=== PATIENT | female | born 1935 | race Native Hawaiian/Other Pacific Islander ===

== ENCOUNTER 2016-04-23 09:10 | Outpatient (CLI) | payer OTHER ==
[~2016-04-23 09:10] MED LIST: ACET5TAB36 PO; AMLO10TA PO; AMOX500C85 PO; ASA LOW STR81 MG PO; BRIMONIDINE0.15 % OP; CIPRO500 MG PO; DIOVAN HC1 PO; ELIQUIS5 MG OR; FLUT0.05 NAS; LEVAQUIN500 MG OR; LEVO0.0529 PO; LEVOTHROID25 MCG OR; LIPITOR40 MG PO; LUMIGAN0.01 % OP; METO50TA27 PO; PACERONE200 MG OR; PREDNISONE5 M1 OR; SERT100T PO; SIMV40TA57 PO; TEMA15CA19 PO; TIZA4TAB5 PO; TRAM50TA PO; UNITHROID50 MCG PO; VYTORIN1 TA2 PO
[2016-04-23 10:10] LABS: PLATELET COUNT 224 K/uL (152-353)
[2016-04-23 10:18] LABS: POTASSIUM 4.1 mmol/L (3.6-5.2)
== END 2016-04-23 23:39 | disposition home or self-care (01) ==
LOC: LABW 09:10
PROVIDERS: Internal Medicine
DX: I10 Essential (primary) hypertension (principal); R82.99 Other abnormal findings in urine
CPT/HCPCS: 36415; 80053; 80061; 81000; 84439; 84443; 85027; 87088

== ENCOUNTER 2016-05-11 18:03 | Emergency (ER) | payer OTHER ==
[~2016-05-11] VITALS: Ht 152.4 cm; Wt 59.0 kg
[2016-05-11 20:16] LABS: POTASSIUM 3.9 mmol/L (3.6-5.2); SODIUM 129 mmol/L (136-145)
[2016-05-11 20:38] LABS: PLATELET COUNT 243 K/uL (152-353)
[2016-05-11 21:08] VITALS: BP 186/67; TEMP 98
== END 2016-05-11 21:08 | disposition home or self-care (01) ==
LOC: ED 18:03
PROVIDERS: Emergency Medicine
DX: I10 Essential (primary) hypertension (principal); N39.0 Urinary tract infection, site not specified; R82.71 Bacteriuria; I48.91 Unspecified atrial fibrillation
CPT/HCPCS: 36415; 80053; 81000; 82550; 84443; 84484; 85027; 85610; 85730; 99283

== ENCOUNTER 2016-09-11 08:48 | Outpatient (CLI) | payer OTHER ==
[2016-09-11 09:05] LABS: PLATELET COUNT 220 K/uL (152-353)
[2016-09-11 09:33] LABS: POTASSIUM 4.1 mmol/L (3.6-5.2)
== END 2016-09-11 19:39 | disposition home or self-care (01) ==
LOC: LABW 08:48
PROVIDERS: Internal Medicine
DX: I10 Essential (primary) hypertension (principal); E03.8 Other specified hypothyroidism
CPT/HCPCS: 36415; 80053; 80061; 81000; 84439; 84443; 85027

== ENCOUNTER 2016-10-28 10:26 | Outpatient (CLI) | payer OTHER | END 2016-10-28 19:06 | disposition home or self-care (01) | LOC: MAMMO 10:26 | DX: Z12.31 Encounter for screening mammogram for malignant neoplasm of breast (principal) | CPT/HCPCS: G0202-TC ==

== ENCOUNTER 2017-03-12 08:53 | Outpatient (CLI) | payer OTHER ==
[2017-03-12 10:05] LABS: PLATELET COUNT 228 K/uL (152-353)
[2017-03-12 13:16] LABS: POTASSIUM 4.1 mmol/L (3.6-5.2)
== END 2017-03-12 09:55 | disposition home or self-care (01) ==
LOC: LABW 08:53
PROVIDERS: Internal Medicine
DX: I10 Essential (primary) hypertension (principal); E03.8 Other specified hypothyroidism
CPT/HCPCS: 36415; 80053; 80061; 81000; 84439; 84443; 85027

== ENCOUNTER 2017-06-10 09:01 | Outpatient (CLI) | payer OTHER ==
[2017-06-10 09:40] LABS: POTASSIUM 3.7 mmol/L (3.6-5.2)
== END 2017-06-11 09:01 | disposition home or self-care (01) ==
LOC: LABW 09:01
PROVIDERS: Internal Medicine
DX: E78.00 Pure hypercholesterolemia, unspecified (principal)
CPT/HCPCS: 36415; 80053; 80061

== ENCOUNTER 2017-10-23 09:12 | Outpatient (CLI) | payer OTHER ==
[2017-10-23 10:00] LABS: POTASSIUM 3.9 mmol/L (3.6-5.2)
== END 2017-10-23 19:44 | disposition home or self-care (01) ==
LOC: LABW 09:12
PROVIDERS: Internal Medicine
DX: I10 Essential (primary) hypertension (principal); E03.8 Other specified hypothyroidism; E78.00 Pure hypercholesterolemia, unspecified
CPT/HCPCS: 36415; 80053; 80061; 84439; 84443

== ENCOUNTER 2017-11-17 10:33 | Outpatient (CLI) | payer OTHER | END 2017-11-17 21:59 | disposition home or self-care (01) | LOC: MAMMO 10:33 | DX: Z12.31 Encounter for screening mammogram for malignant neoplasm of breast (principal) ==

== ENCOUNTER 2017-12-25 08:57 | Outpatient (CLI) | payer OTHER | END 2017-12-25 19:04 | disposition home or self-care (01) | LOC: LABW 08:57 | PROVIDERS: Internal Medicine Cardiovascular Disease | DX: E78.5 Hyperlipidemia, unspecified (principal) | CPT/HCPCS: 36415; 80061 ==

== ENCOUNTER 2018-04-13 08:49 | Outpatient (CLI) | payer OTHER ==
[2018-04-13 09:18] LABS: PLATELET COUNT 236 K/uL (152-353)
[2018-04-13 09:33] LABS: POTASSIUM 3.5 mmol/L (3.6-5.2)
== END 2018-04-13 23:39 | disposition home or self-care (01) ==
LOC: LABW 08:49
PROVIDERS: Internal Medicine
DX: E03.9 Hypothyroidism, unspecified (principal); I10 Essential (primary) hypertension
CPT/HCPCS: 36415; 80053; 80061; 81000; 84439; 84443; 85027

== ENCOUNTER 2018-09-28 08:20 | Outpatient (CLI) | payer OTHER ==
[2018-09-28 08:50] LABS: PLATELET COUNT 247 K/uL (152-353)
== END 2018-09-28 19:08 | disposition home or self-care (01) ==
LOC: LABW 08:20
PROVIDERS: Internal Medicine
DX: I10 Essential (primary) hypertension (principal); E78.00 Pure hypercholesterolemia, unspecified; E03.9 Hypothyroidism, unspecified
CPT/HCPCS: 36415; 80053; 80061; 81000; 84439; 84443; 85027

== ENCOUNTER 2019-01-17 12:39 | Outpatient (CLI) | payer OTHER | END 2019-01-17 19:59 | disposition home or self-care (01) | LOC: MAMMO 12:39 | DX: Z12.31 Encounter for screening mammogram for malignant neoplasm of breast (principal) ==

== ENCOUNTER 2019-04-11 08:25 | Outpatient (CLI) | payer OTHER ==
[2019-04-11 09:03] LABS: POTASSIUM 3.7 mmol/L (3.6-5.2)
[2019-04-11 09:48] LABS: PLATELET COUNT 263 K/uL (152-353)
== END 2019-04-11 19:12 | disposition home or self-care (01) ==
LOC: LABW 08:25
PROVIDERS: Internal Medicine
DX: I10 Essential (primary) hypertension (principal); E78.00 Pure hypercholesterolemia, unspecified; E03.8 Other specified hypothyroidism
CPT/HCPCS: 36415; 80053; 80061; 81000; 84439; 84443; 85027

== ENCOUNTER 2019-09-05 11:53 | Outpatient (CLI) | payer OTHER ==
[2019-09-05 12:30] LABS: PLATELET COUNT 251 K/uL (152-353)
[2019-09-05 13:02] LABS: POTASSIUM 3.8 mmol/L (3.6-5.2)
== END 2019-09-05 23:12 | disposition home or self-care (01) ==
LOC: LAB 11:53
PROVIDERS: Internal Medicine
DX: I10 Essential (primary) hypertension (principal); E78.00 Pure hypercholesterolemia, unspecified; E03.8 Other specified hypothyroidism; R82.998 Other abnormal findings in urine
CPT/HCPCS: 80053; 80061; 81000; 84439; 84443; 85027; 87088

== ENCOUNTER 2020-01-30 09:11 | Outpatient (CLI) | payer OTHER ==
[2020-01-30 09:51] LABS: PLATELET COUNT 274 K/uL (152-353)
[2020-01-30 09:58] LABS: POTASSIUM 4.1 mmol/L (3.6-5.2)
== END 2020-01-30 23:23 | disposition home or self-care (01) ==
LOC: LABW 09:11
PROVIDERS: Internal Medicine Cardiovascular Disease
DX: Z79.899 Other long term (current) drug therapy (principal)
CPT/HCPCS: 36415; 80053; 80061; 85027

== ENCOUNTER 2020-08-08 08:41 | Outpatient (CLI) | payer OTHER ==
[2020-08-08 09:32] LABS: PLATELET COUNT 242 K/uL (152-353)
[2020-08-08 09:39] LABS: POTASSIUM 4.1 mmol/L (3.6-5.2)
== END 2020-08-08 20:40 | disposition home or self-care (01) ==
LOC: LABW 08:41
PROVIDERS: ATTEND Internal Medicine
DX: I10 Essential (primary) hypertension (principal); I25.10 Atherosclerotic heart disease of native coronary artery without angina pectoris; E03.8 Other specified hypothyroidism
CPT/HCPCS: 36415; 80053; 80061; 81000; 84439; 84443; 85027

== ENCOUNTER 2021-03-26 08:47 | Outpatient (CLI) | payer OTHER ==
[2021-03-26 09:08] LABS: PLATELET COUNT 252 K/uL (152-353)
[2021-03-26 10:46] LABS: POTASSIUM 4.1 mmol/L (3.6-5.2)
== END 2021-03-26 19:01 | disposition home or self-care (01) ==
LOC: LABW 08:47
PROVIDERS: ATTEND Internal Medicine
DX: I10 Essential (primary) hypertension (principal)
CPT/HCPCS: 36415; 80053; 80061; 81000; 84439; 84443; 85027

== ENCOUNTER 2021-06-24 16:51 | Outpatient (CLI) | payer OTHER | END 2021-06-24 19:06 | disposition home or self-care (01) | LOC: LAB 16:51 | PROVIDERS: ATTEND Internal Medicine | DX: R31.9 Hematuria, unspecified (principal) | CPT/HCPCS: 81000; 87088 ==

== ENCOUNTER 2021-11-19 13:32 | Outpatient (CLI) | payer OTHER ==
[2021-11-19 13:50] LABS: PLATELET COUNT 280 K/uL (152-353)
[2021-11-19 14:30] LABS: POTASSIUM 4.2 mmol/L (3.6-5.2)
== END 2021-11-19 19:02 | disposition home or self-care (01) ==
LOC: LAB 13:32
PROVIDERS: ATTEND Internal Medicine
DX: I10 Essential (primary) hypertension (principal); E03.8 Other specified hypothyroidism; R82.998 Other abnormal findings in urine
CPT/HCPCS: 80053; 80061; 81002; 81015; 84439; 84443; 85027; 87086; 87088

== ENCOUNTER 2021-12-06 15:08 | Emergency (ER) | payer OTHER ==
[~2021-12-06] VITALS: Ht 144.8 cm; Wt 61.2 kg
[2021-12-06 17:58] LABS: PLATELET COUNT 312 K/uL (152-353)
[2021-12-06 19:45] VITALS: BP 156/73; TEMP 98.4
== END 2021-12-06 19:45 | disposition home or self-care (01) ==
LOC: ED 15:08
PROVIDERS: Emergency Medicine
DX: R31.0 Gross hematuria (principal); S00.03XA Contusion of scalp, initial encounter; W01.198A Fall on same level from slipping, tripping and stumbling with subsequent striking against other object, initial encounter; Y92.89 Other specified places as the place of occurrence of the external cause
CPT/HCPCS: 81000; 84484; 85027; 93005; 99283

== ENCOUNTER 2021-12-13 09:44 | Outpatient (CLI) | payer OTHER | END 2021-12-13 22:08 | disposition home or self-care (01) | LOC: CT 09:44 | PROVIDERS: ATTEND Internal Medicine | DX: R31.9 Hematuria, unspecified (principal) ==

== ENCOUNTER 2022-03-20 14:40 | Inpatient (IN) | payer OTHER ==
[~2022-03-20] VITALS: Ht 144.8 cm; Wt 55.0 kg
[~2022-03-20 14:40] MED LIST changes: +ELIQUIS5 MG; -ELIQUIS5 MG OR; -PACERONE200 MG OR; +PACERONE200 MG PO
[2022-03-20 14:44] VITALS: BP 118/40; TEMP 97.5
[2022-03-20 15:03] LABS: PLATELET COUNT 328 K/uL (152-353)
[2022-03-20 15:12] LABS: POTASSIUM 3.8 mmol/L (3.6-5.2)
[2022-03-20 16:45] VITALS: BP 124/48
[2022-03-20 17:41] VITALS: BP 135/51; TEMP 98.9; Ht 144.8 cm; Wt 55.0 kg
[2022-03-20 19:22] LABS: POTASSIUM 3.7 mmol/L (3.6-5.2)
[2022-03-20 20:00] VITALS: BP 121/50; TEMP 97.9
[2022-03-20] MEDS ORDERED: NP THYROID60 MG PO (20:02)
[2022-03-20] MEDS ORDERED: AMLODIPINE BESYLATE PO (20:03)
[2022-03-20] MEDS ORDERED: TEMA30CA18 PO (20:04)
[2022-03-20] MEDS ORDERED: DORZOLAMIDE HYDRO2 % IO (20:05)
[2022-03-20] MEDS ORDERED: EUTHYROX75 MCG PO (20:06)
[2022-03-20] MEDS ORDERED: EZETIMIBE10 MG PO (20:06)
[2022-03-20] MEDS ORDERED: ASA LOW DOSE81 MG PO (20:24)
[2022-03-20] MEDS ORDERED: TYLENOL325 MG PO (20:24)
[2022-03-20] MEDS ORDERED: REFRESH TEARS0.5 % IO (20:26)
[2022-03-20 23:20] LABS: POTASSIUM 3.4 mmol/L (3.6-5.2)
[2022-03-21] VITALS (7 sets, daily range): BP systolic 110–131; BP diastolic 41–50; TEMP 97.8–98.4
[2022-03-21 03:28] LABS: PLATELET COUNT 279 K/uL (152-353)
[2022-03-21 03:47] LABS: POTASSIUM 3.4 mmol/L (3.6-5.2)
[2022-03-21 07:49] LABS: POTASSIUM 3.7 mmol/L (3.6-5.2)
[2022-03-22 03:48] VITALS: BP 114/46; TEMP 98
[2022-03-22 08:00] VITALS: BP 122/52; TEMP 97.7
[2022-03-22 12:00] VITALS: BP 120/41; TEMP 97.8
[2022-03-22 13:22] LABS: POTASSIUM 3.7 mmol/L (3.6-5.2)
== END 2022-03-22 15:31 | disposition home or self-care (01) | DRG 683 ==
LOC: ED 14:40 → MED/SURG 16:10
PROVIDERS: Emergency Medicine; Internal Medicine Endocrinology, Diabetes & Metabolism; ADMIT Internal Medicine; ATTEND Internal Medicine
DX: N17.8 Other acute kidney failure (principal); E87.1 Hypo-osmolality and hyponatremia; I48.91 Unspecified atrial fibrillation; K21.9 Gastro-esophageal reflux disease without esophagitis; I10 Essential (primary) hypertension; E03.8 Other specified hypothyroidism; E78.49 Other hyperlipidemia; M15.8 Other polyosteoarthritis; R31.0 Gross hematuria
CPT/HCPCS: 36415; 80048; 80053; 85027; 87502; 87635; 96360; 96361; 99284; U0003

== ENCOUNTER 2022-03-27 13:25 | Outpatient (CLI) | payer OTHER ==
[~2022-03-27 13:25] MED LIST changes: +AMLODIPINE BESYLATE PO; +ASA LOW DOSE81 MG PO; +DORZOLAMIDE HYDRO2 % IO; +EUTHYROX75 MCG PO; +EZETIMIBE10 MG PO; +NP THYROID60 MG PO; +REFRESH TEARS0.5 % IO; +TEMA30CA18 PO; +TYLENOL325 MG PO
== END 2022-03-27 18:53 | disposition home or self-care (01) ==
LOC: CT 13:25
PROVIDERS: ATTEND Urology
DX: R93.89 Abnormal findings on diagnostic imaging of other specified body structures (principal)